=== PATIENT | female | born 1930 | race Caucasian/White ===

== ENCOUNTER → 2020-08-23 | Outpatient (CLI) | payer MEDICARE ==
[~2020-08-23] MED LIST: AMOXICILLIN500 M1 PO; ASPIRIN CHEWABL81 MG PO; ASPIRIN EC81 MG PO; BUMETANIDE2 MG PO; CLARITIN10 MG PO; COREG12.5 MG PO; DULERA 100 MCG8.8 GM INH; FEOSOL325 MG PO; FLONASE 0.05% N16 GM; IMDUR ER TAB 3030 MG PO; IRBESARTAN300 MG PO; K-DUR TAB 10 M10 MEQ PO; MELATONIN10 MG PO; METOPROLOL SUCC25 MG PO; METOPROLOL SUCC50 MG PO; PROBIOTIC1 EAC1 PO; SULAR17 MG PO; TOPROL XL25 MG PO; TRIAMTERENE-HC1 EAC1 PO; VITAMIN D3125 MCG PO; XARELTO 15 MG T15 MG PO; ZITHROMAX500 MG PO; ZOCOR 40 MG TAB40 MG PO
== END ==
LOC: KOH-I 10:59
DX: R05 Cough (principal); I51.7 Cardiomegaly
CPT/HCPCS: 71046

== ENCOUNTER → 2020-08-31 | Outpatient (CLI) | payer MEDICARE | LOC: HEART 5 14:32 | DX: R05 Cough (principal); R06.02 Shortness of breath | CPT/HCPCS: 94010 ==

== ENCOUNTER → 2021-05-03 | Outpatient (CLI) | payer MEDICARE | LOC: KOH-I 15:10 | DX: R04.2 Hemoptysis (principal); R91.8 Other nonspecific abnormal finding of lung field | CPT/HCPCS: 71046 ==

== ENCOUNTER → 2021-08-18 | Outpatient (CLI) | payer MEDICARE | LOC: KOH-I 15:24 | DX: R05.1 Acute cough (principal) | CPT/HCPCS: 71046 ==

== ENCOUNTER → 2021-12-12 | Outpatient (CLI) | payer MEDICARE | LOC: KOH-I 15:24 | DX: R06.02 Shortness of breath (principal); R91.8 Other nonspecific abnormal finding of lung field | CPT/HCPCS: 71046 ==

== ENCOUNTER 2022-01-29 07:38 | Inpatient (IN) | payer MEDICARE, MEDICAID ==
[~2022-01-29] VITALS: Ht 162.6 cm; Wt 70.3 kg
[2022-01-29 08:20] LABS: HEMOGLOBIN 8.9 gm/dl (12.3-15.3); RED BLOOD COUNT 3.62 M/UL (4.00-5.10); WHITE BLOOD COUNT 7.4 K/UL (4.5-11.0)
[2022-01-29] MEDS ORDERED: ATORVASTATIN CA40 MG PO (11:32)
[2022-01-29] MEDS ORDERED: ENTRESTO 49 MG1 EACH PO (11:33)
[2022-01-29] MEDS ORDERED: ELIQUIS2.5 MG PO (11:33)
[2022-01-29] MEDS ORDERED: AMIODARONE HCL200 MG PO (11:33)
[2022-01-29] MEDS ORDERED: DULOXETINE HCL30 MG PO (11:34)
[2022-01-29] MEDS ORDERED: METOPROLOL SUCC25 MG PO (11:34)
[2022-01-29] MEDS ORDERED: POTASSIUM CHLO10 MEQ PO (11:34)
[2022-01-30 03:08] LABS: HEMOGLOBIN 8.4 gm/dl (12.3-15.3); RED BLOOD COUNT 3.41 M/UL (4.00-5.10); WHITE BLOOD COUNT 5.7 K/UL (4.5-11.0)
[2022-01-31 02:08] LABS: HEMOGLOBIN 7.9 gm/dl (12.3-15.3); RED BLOOD COUNT 3.19 M/UL (4.00-5.10)
--- NOTE | 2022-01-31 11:26 | NUR ---
PT OXYGEN LEVEL CHECKED ON ROOM AIR. SHE IS NOTED TO BE 87-88% ON ROOM AIR. NOTIFIED CASE MANAGEMENT, AND PHYSICIAN.
[2022-01-31] MEDS ORDERED: BUMETANIDE1 MG PO ×2 (13:57→14:11)
[2022-01-31] MEDS ORDERED: THERAGRAN M TAB1 EA PO (14:09)
[2022-01-31] MEDS ORDERED: ALDACTONE 25MG25 MG PO (14:09)
[2022-02-01 14:14] LABS: ORGANISM ID Not indicated. (.); SPECIMEN SOURCE Urine (.); STREPTOCOCCUS PNEUMONIAE AG Negative (Negative)
== END 2022-01-31 15:33 | disposition home or self-care (01) | DRG 291 ==
LOC: ER1 07:38 → PROG CARE 09:15 → CDU 09:15 → PROG CARE 14:24
PROVIDERS: Emergency Medicine; Internal Medicine Infectious Disease; Internal Medicine Nephrology; Physician Assistant Medical; ADMIT Internal Medicine
PROC: B24BZZZ Ultrasonography of Heart with Aorta (ICD-10-PCS; principal; 2022-01-29)
DX: I13.0 Hypertensive heart and chronic kidney disease with heart failure and stage 1 through stage 4 chronic kidney disease, or unspecified chronic kidney disease (principal); I50.43 Acute on chronic combined systolic (congestive) and diastolic (congestive) heart failure; J96.22 Acute and chronic respiratory failure with hypercapnia; N17.9 Acute kidney failure, unspecified; E87.3 Alkalosis; I08.1 Rheumatic disorders of both mitral and tricuspid valves; E78.5 Hyperlipidemia, unspecified; N18.30 Chronic kidney disease, stage 3 unspecified; D63.1 Anemia in chronic kidney disease; K57.90 Diverticulosis of intestine, part unspecified, without perforation or abscess without bleeding; K64.8 Other hemorrhoids; I25.10 Atherosclerotic heart disease of native coronary artery without angina pectoris; Z66 Do not resuscitate; I48.0 Paroxysmal atrial fibrillation; I27.20 Pulmonary hypertension, unspecified; H91.90 Unspecified hearing loss, unspecified ear; I42.9 Cardiomyopathy, unspecified; E87.6 Hypokalemia; D50.9 Iron deficiency anemia, unspecified; Z95.0 Presence of cardiac pacemaker; Z95.5 Presence of coronary angioplasty implant and graft; Z98.890 Other specified postprocedural states; Z82.49 Family history of ischemic heart disease and other diseases of the circulatory system; Z79.82 Long term (current) use of aspirin; Z79.01 Long term (current) use of anticoagulants; Z88.8 Allergy status to other drugs, medicaments and biological substances; Z87.891 Personal history of nicotine dependence; Z83.3 Family history of diabetes mellitus; Z90.710 Acquired absence of both cervix and uterus; Z79.899 Other long term (current) drug therapy
CPT/HCPCS: ECHO; 0240U; 36415; 36600; 71045; 80048; 80053; 81001; 82550; 82553; 82570; 82728; 82803; 83540; 83550; 83605; 83735; 83880; 84100; 84132; 84133; 84156; 84300; 84484; 85025; 85027; 87040; 87086; 87278; 87899; 93005; 93306; 94640; 94664; 94760; 96365; 96375; 97161; 97165; 99285; J0696; J1756; J2543; J3475; J3480

== ENCOUNTER 2022-04-14 02:09 | Observation (INO) | payer MEDICARE, MEDICAID ==
[~2022-04-14] VITALS: Ht 162.6 cm; Wt 67.2 kg
[~2022-04-14 02:09] MED LIST changes: +ALDACTONE 25MG25 MG PO; +AMIODARONE HCL200 MG PO; +ATORVASTATIN CA40 MG PO; +BUMETANIDE1 MG PO; +DULOXETINE HCL30 MG PO; +ELIQUIS2.5 MG PO; +ENTRESTO 49 MG1 EACH PO; +POTASSIUM CHLO10 MEQ PO; +THERAGRAN M TAB1 EA PO
[2022-04-14 03:33] LABS: HEMOGLOBIN 12.2 gm/dl (12.3-15.3); RED BLOOD COUNT 4.1 M/UL (4.00-5.10); WHITE BLOOD COUNT 7.6 K/UL (4.5-11.0)
[2022-04-14] MEDS ORDERED: ENTRESTO 49 MG1 EACH PO (09:08)
[2022-04-14] MEDS ORDERED: POTASSIUM CHLO10 MEQ PO (09:09)
[2022-04-14] MEDS ORDERED: BUMETANIDE2 MG PO (09:10)
[2022-04-15 04:04] LABS: HEMOGLOBIN 10.5 gm/dl (12.3-15.3); RED BLOOD COUNT 3.52 M/UL (4.00-5.10); WHITE BLOOD COUNT 6.1 K/UL (4.5-11.0)
[2022-04-16 03:37] LABS: HEMOGLOBIN 11.1 gm/dl (12.3-15.3); RED BLOOD COUNT 3.7 M/UL (4.00-5.10); WHITE BLOOD COUNT 6.3 K/UL (4.5-11.0)
[2022-04-16] MEDS ORDERED: POTASSIUM CHLO10 MEQ PO (13:43)
== END 2022-04-16 15:06 | disposition home or self-care (01) ==
LOC: ER1 02:09 → CDU 06:07 → MED SURG 4 06:07 → CDU 06:07 → MED SURG 4 07:56
PROVIDERS: Family Medicine; Internal Medicine; ADMIT Internal Medicine
DX: I13.0 Hypertensive heart and chronic kidney disease with heart failure and stage 1 through stage 4 chronic kidney disease, or unspecified chronic kidney disease (principal); N18.30 Chronic kidney disease, stage 3 unspecified; I50.43 Acute on chronic combined systolic (congestive) and diastolic (congestive) heart failure; I34.0 Nonrheumatic mitral (valve) insufficiency; I25.10 Atherosclerotic heart disease of native coronary artery without angina pectoris; I48.0 Paroxysmal atrial fibrillation; I49.5 Sick sinus syndrome; I31.3 Pericardial effusion (noninflammatory); E87.5 Hyperkalemia; E78.5 Hyperlipidemia, unspecified; R79.89 Other specified abnormal findings of blood chemistry; M10.9 Gout, unspecified; J44.9 Chronic obstructive pulmonary disease, unspecified; D50.9 Iron deficiency anemia, unspecified; Z66 Do not resuscitate; Z99.81 Dependence on supplemental oxygen; Z95.0 Presence of cardiac pacemaker; Z95.1 Presence of aortocoronary bypass graft; Z87.891 Personal history of nicotine dependence; Z95.2 Presence of prosthetic heart valve; Z88.8 Allergy status to other drugs, medicaments and biological substances; Z79.01 Long term (current) use of anticoagulants; Z79.82 Long term (current) use of aspirin; Z79.899 Other long term (current) drug therapy
CPT/HCPCS: ECHO; 36415; 36600; 71045; 80048; 80053; 82550; 82553; 82803; 83605; 83735; 83880; 84132; 84484; 85025; 93005; 93306; 94640; 94664; 94760; 96374; 96376; 99285; G0378